=== PATIENT | female | born 1985 | race Caucasian/White ===

== ENCOUNTER 2021-10-03 10:58 | Outpatient (RCR) | payer BC | END 2021-10-18 | disposition home or self-care (01) | LOC: PT | DX: M25.511 Pain in right shoulder (principal) ==

== ENCOUNTER 2021-10-19 12:03 | Outpatient (RCR) | payer BC | END 2021-11-03 17:00 | disposition home or self-care (01) | LOC: PT 12:03 | DX: M25.511 Pain in right shoulder (principal) ==